=== PATIENT | female | born 1965 | race American Indian/Alaskan Native ===

== ENCOUNTER 2021-01-09 08:25 | Outpatient (CLI) | payer OTHER ==
--- NOTE | 2021-01-09 09:14 | Ultrasound Report ---
ULTRASOUND BREAST RIGHT LIMITED, 01/09/2021 CLINICAL INFORMATION / INDICATION: MASTODYNIA/ CALCIFICATIONS. Abnormal mammogram. TECHNIQUE: Targeted ultrasound evaluation was performed of the area of interest. COMPARISON: Right breast ultrasound 12/19/20, diagnostic right breast mammogram 11/07/20 and bilatera l mammography 11/17/2019 and 10/31/2020. FINDINGS: There is a benign-appearing lymph node at the 9:00 position 14 cm from the nipple which corresponds t o a stable lymph node mammographically. The node measures 7.0 x 5.0 x 9.0 mm and demonstrates normal hilar blood flow. A small adjacent area of posterior shadowing corresponds to a biopsy clip mammograp hically. IMPRESSION: Benign-appearing lymph node and adjacent biopsy clip in the right lateral breast. No sono graphic evidence of malignancy. Follow up recommendation: Routine yearly BI-RADS Category 2: Benign. A normal or "negative" report should not preclude biopsy or follow-up of a clinically suspicious find ing. Signer Name: Josh Ch MD Signed: 01/09/2021 9:10 AM Workstation Name: [id number]
== END 2021-01-09 08:26 | disposition home or self-care (01) ==
LOC: SPVWC 08:25
PROVIDERS: ATTEND Surgery
DX: N64.4 Mastodynia (principal); R92.1 Mammographic calcification found on diagnostic imaging of breast; R92.2 Inconclusive mammogram